=== PATIENT | female | born 1960 | race African-American/Black ===

== ENCOUNTER 2018-07-01 11:30 | Emergency (ER) | payer BC, MEDICAID ==
[~2018-07-01] VITALS: Ht 162.6 cm; Wt 63.5 kg
[~2018-07-01 11:30] MED LIST: Acetaminophen PO; PANT40TA2 PO; Sertraline Hcl PO
--- NOTE | 2018-07-01 11:52 | NUR ---
PT IS IN ROOM #2A. DR KIRKLAND EVALUATED THE PT.
[2018-07-01] MEDS ORDERED: KETOROLAC TROMETHAMINE 30 MG INJ ONE (11:53)
[2018-07-01] MEDS ORDERED: KETOROLAC TROMETHAMINE 30 MG INJ IM ONE (12:00)
--- NOTE | 2018-07-01 13:17 | NUR ---
PT WAS D/C TO HOME. D/C INSTRUCTIONS GIVEN TO THE PT.
[2018-07-01 13:18] VITALS: BP 139/75
== END 2018-07-01 13:19 | disposition home or self-care (01) ==
LOC: ER 11:30
DX: M72.2 Plantar fascial fibromatosis (principal); F17.200 Nicotine dependence, unspecified, uncomplicated
CPT/HCPCS: 93971; 96372; 99284; 99406; A4663; J1885